=== PATIENT | male | born 1970 | race Caucasian/White ===

== ENCOUNTER 2024-04-24 22:48 | Emergency (ER) | payer OTHER, SELFPAY ==
[2024-04-24 22:49] VITALS: BP 144/95; PULSE 88; RESP 16; TEMP 36.7; O2SAT 97; BMI 36.8
--- NOTE | 2024-04-24 23:33 | RAD_ITS ---
INDICATION: edema EXAMINATION/TECHNIQUE: X-RAY - XR Chest 2 Views COMPARISON: None. FINDINGS: LINES/DEVICES: None. LUNGS: No consolidation or evidence of an effusion. No evidence of edema or a pneumothorax. MEDIASTINUM AND CARDIOVASCULAR STRUCTURES: Cardiac silhouette is normal in size and contour. Mediastinum is unremarkable. BONES AND SOFT TISSUES: No acute abnormality. RAD/Chest PA and Lateral IMPRESSION: No evidence of cardiopulmonary disease. Electronically Signed: Kevin Campos DO at 0:26 EDT ,
[2024-04-24] MEDS: Ketorolac 30 MG/ML Syringe IV (23:51)
[2024-04-24 23:57] LABS: Absolute Lymphocyte Count 1.65 X10^3/uL (0.83-4.51); Absolute Neutrophil Count 3.7 X10^3/uL (2.0-7.7); Basophil# 0.05 X10^3/uL; Basophil% 0.8 % (0-1); Eosinophil# 0.19 X10^3/uL; Hematocrit 44.7 % (40-54); Hemoglobin 14.5 g/dL (13.0-16.5); Lymphocyte # 1.65 X10^3/ul (0.83-4.51); Lymphocyte % 26.4 % (19-41); Mean Corp Hgb Conc 32.4 g/dL (32-36); Mean Corpuscular Hgb 29.7 pg (27.0-32.0); Mean Corpuscular Volume 91.4 fL (80-94); Mean Platelet Vol. 10.2 fl (6.2-12.0); Monocyte% 9.6 % (0-10); NRBC Flagged by Analyzer 0 % (0-5); Neutrophil # 3.74 X10^3/uL (2.7-7.7); Neutrophil % 59.7 % (47-70); Platelet Count 207 K/mm3 (150-450); RBC Distribution Width CV 13.3 % (11.6-14.6); RBC Distribution Width SD 44.9 fl (35.1-43.9); Red Blood Count 4.89 M/mm3 (4.6-6.2); White Blood Count 6.3 K/mm3 (4.4-11.0)
[2024-04-25 00:48] VITALS: BP 132/85; PULSE 76; RESP 14; O2SAT 98
[2024-04-25 00:48] LABS: Anion Gap 7 (5-15); BUN 11 mg/dL (7-18); BUN/Creat Ratio 12.3 RATIO (10-20); Calcium,Total 8.9 mg/dL (8.5-10.1); Chloride 108 mmol/L (98-107); Creatinine, Serum 0.89 mg/dL (0.70-1.30); EST Glomerular Filtration Rate 95 mL/min (>60); Est Glom Filt Rate - Afr Amer 114 mL/min (>60); Estimated Creatinine Clearance 109.38 ml/min; Glucose 113 mg/dL (74-106); Magnesium 2.1 mg/dL (1.6-2.6); Potassium 3.9 mmol/L (3.5-5.1); Sodium Level 139 mmol/L (136-145)
--- NOTE | 2024-04-25 01:06 | ED.RN ---
Lab called about prolonged BNP read time. I was told there was an error message and it would need re-run.
[2024-04-25 01:25] LABS: BNP,B-Type NATRIURETIC PEPTIDE 3.9 pg/mL (0-100)
--- NOTE | 2024-04-25 01:35 | EDS_ITS ---
HPI History of Present Illness Chief Complaint: Edema Informant: patient and spouse/S.O. Narrative Narrative: Patient is a 53-year-old male with past medical history of hypertension and PTSD. He states that over the past week he has felt his legs are swollen. He states that he will notice pain in both the front and back of the leg that seems to occur with exertion and then will improve while at rest. He states that he was reading on the Internet and had concerned that he may have congestive heart failure and secondary to this presents for evaluation [facility] Medical History (Updated 04/25/24 @ 02:[address] Maximo Christianson, DO) PTSD (post-traumatic stress disorder) Hypertension Home Medications ?Medication ?Instructions ?Recorded ?Last Taken ?Type cholecalciferol (vitamin D3) 50 50 mcg PO DAILY 04/24/24 Unknown History mcg (2,000 unit) capsule (Vitamin D3) lisinopril 10 mg tablet 10 mg PO DAILY 04/24/24 Unknown History minocycline 100 mg capsule 100 mg PO DAILY acne 04/24/24 Unknown History Allergy/AdvReac Type Severity Reaction Status Date / Time No Known Allergies Allergy Verified 04/24/24 22:51 Social History Smoking Status: Never smoker [facility] ED Constitutional Constitutional ED: Denies chills or fever(s) ENT ENT ED: Denies sore throat Cardiovascular Cardiovascular: Reports other Details: Positive leg swelling ; Denies chest pain, palpitations or racing heartbeat Respiratory/Chest Respiratory/Chest: Denies cough or dyspnea Gastrointestinal Gastrointestinal: Denies abdominal pain, diarrhea, nausea or vomiting Genitourinary Genitourinary ED: Denies dysuria Musculoskeletal Musculoskeletal: Reports other Details: Positive bilateral leg pain Integumentary Denies rash Neurologic Neurologic: Denies headache(s) Hematologic/Lymphatic Hematologic/Lymphatic: Denies easy bleeding or easy bruising EXAM Physical Exam Const Vital Signs: 04/24/24 22:49 04/24/24 23:08 04/25/24 00:48 Temperature 98.1 F Temperature Source Temporal Pulse Rate 88 76 Respiratory Rate 16 14 Respiratory Effort Normal Respiratory Pattern Normal Blood Pressure 144/95 H 132/85 H Blood Pressure Mean 111 100 Pulse Ox 97 98 Oxygen Delivery Method Room Air Room Air 04/25/24 01:40 Temperature 96.9 F L Temperature Source Pulse Rate 76 Respiratory Rate 18 Respiratory Effort Respiratory Pattern Blood Pressure 137/101 H Blood Pressure Mean 113 Pulse Ox 96 Oxygen Delivery Method Positive well nourished and well developed General Appearance ED: well developed; Negative for pallor HEENT HEENT Narrative: Normocephalic atraumatic Eyes PERRL and EOMs intact bilaterally General Eye ED: Negative for pale conjunctiva or scleral icterus Neck supple and no JVD Resp normal respiratory effort and clear to auscultation bilaterally Cardio regular rate and regular rhythm GI normal to inspection, nondistended, normoactive bowel sounds, non-tender, non- distended and no masses GI Narrative: No pulsatile mass or fluid wave noted Auscultation: normoactive bowel sounds Palpation: soft Back/Spine Back/Spine Narrative: No bony deformity or step-off of the thoracic or lumbar spine no midline tenderness to palpation No saddle anesthesia. Negative straight leg raise. No clonus or Babinski Patellar reflexes are plus 2 out of 4 bilaterally. Extremity Extremity Narrative: Patient has trace pitting edema to the bilateral lower extremities that is equal and symmetric No overlying soft tissue changes to suggest infection Capillary refill is less than 3 seconds Bilateral posterior tibial and dorsalis pedis pulses are plus 2 out of 4 bilaterally Compartments are soft and compressible going against compartment syndrome Negative Homans' sign bilaterally Neuro oriented x3, CN's II-XII intact bilaterally and no sensory deficits noted Sensorium / Orientation: alert Motor Exam: strength 5/5 throughout Psych mental status grossly normal Skin no rashes or lesions noted General Skin Exam: Negative for jaundice or pallor MDM MDM MDM Narrative Medical decision making narrative: Patient arrived to the ER hypertensive but has a past medical history of this and otherwise vitals are stable. He denied any trauma as well as any past history of CHF but does have concern for this. He also denies any recent excessive activity or new workout programs and he states he does not take a statin medication. His exam does not show any overlying signs of cellulitis or abscess and physical exam displays soft compartments going against compartment syndrome. As patient has concern for CHF and elected for basic laboratory studies. Patient's kidney function is normal going against ALEXA and his proBNP is normal at 3.9 also and again CHF. His chest x-ray shows no cardiomegaly or signs of vascularization or pleural effusion also going to get CHF. The patient has no risk factors for rhabdomyolysis and therefore did not order a CPK level. I informed the patient that I cannot perform a venous duplex at this time of night but would order one as an outpatient in order to rule out DVT as a cause. However bilateral DVTs at the same time would be rare and patient therefore does not want the venous duplex obtain. We discussed symptoms could be neurologic coming from lumbar radiculopathy but to get this bilaterally be rare as well and his physical exam did not show any findings concerning for it. He also denied any loss of bowel or bladder control or IV drug use going against cauda equina or epidural abscess. Therefore at this time with a negative workup and stable vitals and complete resolution of symptoms in the ER I do feel patient is safe for discharge but as there is no obvious cause found for his symptoms this evening he was strongly recommended/encouraged to follow-up with family doctor to seek further tests for his recurrent pain History & Record Review Discussion w/independent historian: Patient and Significant other Lab Data Attestation: I reviewed the patient's lab results. Labs: Laboratory Results - last 24 hr 04/24/24 23:50 WBC 6.3 RBC 4.89 Hgb 14.5 Hct 44.7 MCV 91.4 MCH 29.7 MCHC 32.4 RDW Std Deviation 44.9 H RDW Coeff of Linette 13.3 Plt Count 207 MPV 10.2 Immature Gran % (Auto) 0.500 Neut % (Auto) 59.7 Lymph % (Auto) 26.4 [place] % (Auto) 9.6 Eos % (Auto) 3.0 Baso % (Auto) 0.8 Absolute Neuts (auto) 3.7 Absolute Lymphs (auto) 1.65 Nucleated RBC % 0 Sodium 139 Potassium 3.9 Chloride 108 H Carbon Dioxide 24.0 Anion Gap 7 BUN 11 Creatinine 0.89 Estim Creat Clear Calc 109.38 Est GFR (MDRD) Af Amer 114 Est GFR (MDRD) Non-Af 95 BUN/Creatinine Ratio 12.3 Glucose 113 H Calcium 8.9 Magnesium 2.1 B-Natriuretic Peptide 3.9 Radiography Diagnostic Testing: Clinical Impression(s) from Imaging Studies Chest X-Ray 04/24/24 23:33 IMPRESSION: No evidence of cardiopulmonary disease. Electronically Signed: Kevin Campos DO at 0:26 EDT , 2 view chest x-ray as interpreted by the emergency medicine physician reveals no acute infiltrate pneumothorax pleural effusion widened mediastinum or cardiomegaly Discharge Plan Triage Chief Complaint: Edema ED Provider: Maximo Christianson Dx/Rx/DC Orders Clinical Impression: Bilateral leg pain, Muscle spasm of both lower legs, Hypertension Instructions: ED Leg Spasm, ED Myalgias Prescriptions: No Action lisinopril 10 mg tablet 10 mg PO DAILY minocycline 100 mg capsule 100 mg PO DAILY cholecalciferol (vitamin D3) [Vitamin D3] 50 mcg (2,000 unit) capsule 50 mcg PO DAILY Primary Care Provider: MARILYN MANNING Referrals: MARILYN MANNING [Other] Activity Restrictions/Additional Instructions: Your workup did not show any sign of infection kidney damage or signs of heart failure as a cause of your symptoms. Follow-up with your family doctor for repeat evaluation as you may need further testing to check for rhabdomyolysis, a DVT, nerve impingement from your back, or potentially exertional compartment syndrome. Return to the ER should you have any further concerns Print Language: Citizen Of [place] Disposition Disposition: Home, Self Care Discharge Date/Time: 04/25/24 01:41
[2024-04-25 01:40] VITALS: BP 137/101; PULSE 76; RESP 18; TEMP 36.1; O2SAT 96
== END 2024-04-25 01:41 | disposition home or self-care (01) ==
PROVIDERS: Emergency Provider Emergency Medicine; Visit Provider Emergency Medicine
DX: M79.605 Pain in left leg (principal); M79.604 Pain in right leg; M62.838 Other muscle spasm; I10 Essential (primary) hypertension; F43.10 Post-traumatic stress disorder, unspecified
CPT/HCPCS: 71046; 80048; 83735; 83880; 85025; 96374; 99283; A4216